=== PATIENT | male | born 1995 | race Caucasian/White ===

== ENCOUNTER 2017-05-18 20:22 | Emergency (ER) | payer OTHER ==
[2017-05-18] MEDS: oxyCOD/ACETAMIN 5 MG/325 MG TABLET PO STA (21:00)
[2017-05-18] MEDS ORDERED: oxyCOD/ACETAMIN 5 MG/325 MG TABLET PO ONE (21:05)
[2017-05-18] MEDS: KETOROLAC 60 MG/2 ML VIAL IM STA (22:11)
[2017-05-18] MEDS ORDERED: KETOROLAC 60 MG/2 ML VIAL ONE ×2 (22:14→22:19)
--- NOTE | 2017-05-18 22:17 | XRAY Preliminary Report ---
Exam: XR HIP W/PELVIS 2-3V LT IMPRESSION: 1. No acute abnormality seen in the pelvis or hip. [facility] SITE ID: [id number]
--- NOTE | 2017-05-18 22:20 | XRAY Preliminary Report ---
Exam: XR KNEE 4 VIEW RT IMPRESSION: 1. No acute osseous abnormality. [facility] SITE ID: [id number]
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
--- NOTE | 2017-05-18 22:23 | XRAY Preliminary Report ---
Exam: XR SHOULDER 3 VIEW RT IMPRESSION: 1. Possible grade 2 AC separation. [facility] SITE ID: [id number]
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
--- NOTE | 2017-05-18 22:25 | XRAY Preliminary Report ---
Exam: XR LUMBAR SPINE 2 VIEW IMPRESSION: 1. No acute lumbar spine abnormality. [facility] SITE ID: [id number]
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
[2017-05-18 22:41] VITALS: BP 145/70
[2017-05-18] MEDS ORDERED: BACITRACIN OINT TOP ONE (22:48)
[2017-05-18] MEDS: BACITRACIN OINT TOP STA (22:55)
== END 2017-05-18 23:00 | disposition home or self-care (01) ==
LOC: ED 20:22
DX: S43.101A Unspecified dislocation of right acromioclavicular joint, initial encounter (principal); V29.9XXA Motorcycle rider (driver) (passenger) injured in unspecified traffic accident, initial encounter; F17.200 Nicotine dependence, unspecified, uncomplicated
CPT/HCPCS: 72100; 73030; 73502; 73564; 96372; 99283; 99284; A9270

== ENCOUNTER 2018-07-07 11:51 | Day surgery (SDC) | payer OTHER ==
[2018-07-07] MEDS ORDERED: cefTRIAXone 2 GM VIAL ONE (12:24)
--- NOTE | 2018-07-07 12:37 | ANESTHESIA ---
Pre-Anesthesia VS, & Labs - Diagnosis R shoulder AC seperation - Procedure R shoulder CC ligament reconstruction Vital Signs: Last Vital Signs Temp 36.3 C L 07/07/18 12:30 Pulse 84 07/07/18 12:30 Resp 18 07/07/18 12:30 BP 133/83 H 07/07/18 12:30 Pulse Ox 98 07/07/18 12:30 Height 5 ft 6 in Weight (kg) 104.33 kg Body Mass Index 33.9 - NPO >8 hours Home Medications and Allergies Home Medications: Ambulatory Orders No Known Home Medications 07/04/18 No Known Home Medications 07/04/18 Allergies/Adverse Reactions: Allergies Allergy/AdvReac Type Severity Reaction Status Date / Time No Known Drug Allergies Allergy Verified 07/04/18 10:48 Anes History & Medical History - Anesthetic History Anesthesia Complications: reports: No previous complications Family history of Anesthesia Complications: Denies Family history of Malignant Hyperthermia: Denies - Medical History Cardiovascular: reports: None Pulmonary: reports: None, Sleep apnea (states he may have sleep apnea) Gastrointestinal: reports: None Urinary: reports: None Musculoskeletal: reports: Other Endocrine/Autoimmune: reports: None Skin: reports: None Smoking Status: Current every day smoker - Surgical History Eyes Ears Nose Throat (EENT): Other (eye laser) Exam General: Alert, Oriented x3, Cooperative Dental: WNL Mouth Opening: Greater than 4 Fingerbreadths Neck Mobility: Normal Mallampati classification: II Thyromental Distance: 4-6 cm Respiratory: Lungs clear, Normal breath sounds, No respiratory distress Cardiovascular: Regular rate Neurological: Normal speech Mental/Cognitive Status: Alert/Oriented X3 Plan Anesthesia Type: General, Supraclavicular Block (possible post-op) Consent for Procedure(s) Verified and Reviewed: Yes Code Status: Attempt Resuscitation ASA classification: 2-Mild systemic disease Is this case an emergency?: No
[2018-07-07] MEDS ORDERED: LACTATED RINGERS 1,000 ML IV ONE ×2 (12:49→17:36)
[2018-07-07] MEDS ORDERED: MIDAZOLAM 2 MG/2 ML VIAL IVP ONE (14:00)
[2018-07-07] MEDS ORDERED: KETOROLAC 30 MG/ML VIAL IVP ONE (14:00)
[2018-07-07] MEDS ORDERED: GLYCOPYRROLATE 1 MG/5 ML VIAL IVP ONE (14:00)
[2018-07-07] MEDS ORDERED: PROPOFOL 200 MG/20 ML VIAL IVP ONE (14:00)
[2018-07-07] MEDS ORDERED: NEOSTIGMINE 1 MG/1 ML 10 ML MDV IVP ONE (14:00)
[2018-07-07] MEDS ORDERED: fentaNYL 250 MCG/5 ML VIAL IVP ONE (14:00)
[2018-07-07] MEDS ORDERED: ACETAMINOPHEN 1,000 MG/100 ML 100 ML IV ONE (14:00)
[2018-07-07] MEDS ORDERED: fentaNYL 100 MCG/2 ML VIAL IVP ONE (14:00)
[2018-07-07] MEDS ORDERED: ONDANSETRON 4 MG/2 ML VIAL IVP ONE (14:00)
[2018-07-07] MEDS ORDERED: ROCURONIUM 50 MG/5 ML VIAL IVP ONE (14:00)
[2018-07-07] MEDS ORDERED: LIDOCAINE-MPF 2% 5 ML VIAL IM ONE (14:00)
[2018-07-07] MEDS ORDERED: DEXAMETHASONE 4 MG/ML VIAL IVP ONE (14:00)
[2018-07-07] MEDS ORDERED: BUPIVACAINE 0.25% PF 30 ML VIAL ONE (14:23)
[2018-07-07] MEDS ORDERED: BUPIVACAINE 0.25% PF 30 ML VIAL SUBQ ONE (14:25)
[2018-07-07] MEDS ORDERED: SODIUM CHLORIDE 0.9% 10 ML ONE (14:54)
[2018-07-07] MEDS ORDERED: BACITRACIN 50,000 UNIT VIAL ONE (14:55)
[2018-07-07] MEDS ORDERED: BACITRACIN 50,000 UNIT VIAL TOP ONE (15:15)
[2018-07-07] MEDS ORDERED: ONDANSETRON 4 MG/2 ML VIAL IVP PRN (17:20)
[2018-07-07] MEDS ORDERED: oxyCODONE 5 MG TABLET PO PRN (17:20)
[2018-07-07] MEDS ORDERED: HYDROmorphone 0.5 MG/0.5 ML SYRINGE ONE ×2 (17:34→17:46)
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
[2018-07-07] MEDS ORDERED: oxyCODONE 5 MG TABLET ONE (18:04)
[2018-07-07] MEDS: HYDROmorphone 1 MG/ML CARPUJECT ONE ×2 (18:29→18:32)
[2018-07-07 18:35] VITALS: BP 152/97
[2018-07-07] MEDS ORDERED: ONDANSETRON ODT 4 MG TABLET ONE (18:48)
--- NOTE | 2018-07-08 10:42 | XRAY Report ---
Reason: RIGHT SHOULDER LIGAMENT RECONSTRUCTION Procedure Date: 07/07/2018 Accession Number: [id number] / [id number] Procedure: FL - OR C-Arm Procedure CPT Code: FULL RESULT: EXAM: FLUOROSCOPIC GUIDANCE EXAM DATE: 07/07/2018 03:58 PM. CLINICAL HISTORY: RIGHT SHOULDER LIGAMENT RECONSTRUCTION. COMPARISON: OR C-ARM PROCEDURE 07/07/2018 3:58 PM. FINDINGS: Fluoroscopically there are 2 AP views of the right shoulder. These demonstrate a relatively wide acromioclavicular interval and no apparent glenohumeral dislocation on the frontal view. IMPRESSION: Fluoroscopic guidance provided for right shoulder ligament reconstruction. Total fluoroscopy time: 0.1 minutes. Number of images: 2. [facility]
--- NOTE | 2018-07-08 12:21 | XRAY Report ---
Reason: right shoulder ligament reconstruction Procedure Date: 07/07/2018 Accession Number: [id number] / [id number] Procedure: XR - Shoulder 2 View RT CPT Code: FULL RESULT: EXAM: FLUOROSCOPIC GUIDANCE EXAM DATE: 07/07/2018 03:58 PM. CLINICAL HISTORY: Right shoulder ligament reconstruction. COMPARISON: None. FINDINGS: Fluoroscopic guidance for right shoulder ligament reconstruction IMPRESSION: Fluoroscopic guidance provided for Dr. Costello. Total fluoroscopy time: Not provided. Number of images: 2. [facility]
== END 2018-07-07 11:52 | disposition home or self-care (01) ==
LOC: SDS 11:51
PROVIDERS: ATTEND Orthopaedic Surgery
PROC: 0RUG0KZ Supplement Right Acromioclavicular Joint with Nonautologous Tissue Substitute, Open Approach (ICD-10-PCS; 2018-07-07)
PROC: 0RSG04Z Reposition Right Acromioclavicular Joint with Internal Fixation Device, Open Approach (ICD-10-PCS; principal; 2018-07-07 13:00)
DX: S43.101A Unspecified dislocation of right acromioclavicular joint, initial encounter (principal)
CPT/HCPCS: 23552; 73030; A9270; C1762; J0131; J1170; J3010; J7120; Q0162